=== PATIENT | female | born 2000 | race Caucasian/White ===

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

== ENCOUNTER 2022-03-12 19:05 | Emergency (ER) | payer BC ==
[~2022-03-12] VITALS: Ht 167.6 cm; Wt 68.1 kg
[2022-03-12 19:05] VITALS: BP 148/77
== END 2022-03-12 21:36 | disposition left against medical advice (07) ==
LOC: M ED 19:05
DX: Z53.21 Procedure and treatment not carried out due to patient leaving prior to being seen by health care provider (principal)

== ENCOUNTER 2022-11-25 10:39 | Emergency (ER) | payer BC ==
[~2022-11-25] VITALS: Ht 167.6 cm; Wt 56.3 kg
[2022-11-25 12:36] VITALS: BP 104/57; TEMP 97.8; O2SAT 99
[2022-11-25 12:50] LABS: BASO % 0.3 % (0.0-1.0); EOS # 0.1 10^3/uL (0.0-0.5); EOS % 0.7 % (0.0-3.0); HEMATOCRIT 38.8 % (36.0-47.0); HEMOGLOBIN 12.7 g/dl (12.0-15.5); LYMPH # 3.2 10^3/uL (1.5-5.0); LYMPH % 27.2 % (24.0-44.0); MEAN CORPUSCULAR HEMOGLOBIN 31.4 pg (27.0-33.0); MEAN CORPUSCULAR HGB CONC 32.7 g/dl (32.0-36.5); MONO # 0.9 10^3/uL (0.0-0.8); MONO % 7.9 % (2.0-8.0); NEUTROPHILS # 7.4 10^3/uL (1.5-8.5); NEUTROPHILS % 63.6 % (36.0-66.0); PLATELET COUNT, AUTOMATED 350 10^3/uL (150-450); RED BLOOD COUNT 4.04 10^6/uL (4.00-5.40); WHITE BLOOD COUNT 11.6 10^3/uL (4.0-10.0)
[2022-11-25] MEDS ORDERED: cefTRIAXone SOD 1 GM in D5W MINI-BAG PLUS 50 ML IV ONE (12:50)
[2022-11-25] MEDS ORDERED: NS 1,000 ML IV ONE (12:50)
[2022-11-25 13:14] LABS: BLOOD UREA NITROGEN 11 MG/DL (9-23); CALCIUM LEVEL 9.4 MG/DL (8.5-10.1); CARBON DIOXIDE LEVEL 28 MMOL/L (20-31); CHLORIDE LEVEL 106 MMOL/L (98-107); GLUCOSE, FASTING 79 MG/DL (60-100); POTASSIUM SERUM 4.2 MMOL/L (3.5-5.1); SODIUM LEVEL 139 MMOL/L (136-145)
[2022-11-25 13:15] LABS: HCG, SERUM QUALITATIVE NEGATIVE (NEGATIVE)
[2022-11-25] MEDS ORDERED: CEFD300C41 PO (13:19)
[2022-11-28] MEDS ORDERED: BACT800T5 PO (08:39)
== END 2022-11-25 13:46 | disposition home or self-care (01) ==
LOC: M ED 10:39
DX: N39.0 Urinary tract infection, site not specified (principal); N10 Acute pyelonephritis; F41.9 Anxiety disorder, unspecified; F32.A Depression, unspecified; Z88.1 Allergy status to other antibiotic agents; Z79.2 Long term (current) use of antibiotics
CPT/HCPCS: 76775; 80048; 81001; 84703; 85025; 87088; 87186; 96365; 99284; J0696

== ENCOUNTER 2023-09-17 22:24 | Emergency (ER) | payer BC ==
[~2023-09-17 22:24] MED LIST: BACT800T5 PO; CEFD1CAP9 PO
[2023-09-17 22:40] VITALS: TEMP 97.1
[2023-09-17 23:09] LABS: BASO % 0.3 % (0.0-1.0); EOS # 0.2 10^3/uL (0.0-0.5); EOS % 1.8 % (0.0-3.0); HEMATOCRIT 36.1 % (36.0-47.0); LYMPH # 3.7 10^3/uL (1.5-5.0); LYMPH % 39.5 % (24.0-44.0); MEAN CORPUSCULAR HEMOGLOBIN 31.9 pg (27.0-33.0); MEAN CORPUSCULAR HGB CONC 33.2 g/dl (32.0-36.5); MONO # 0.6 10^3/uL (0.0-0.8); MONO % 6.7 % (2.0-8.0); NEUTROPHILS # 4.9 10^3/uL (1.5-8.5); NEUTROPHILS % 51.4 % (36.0-66.0); PLATELET COUNT, AUTOMATED 302 10^3/uL (150-450); RED BLOOD COUNT 3.76 10^6/uL (4.00-5.40); WHITE BLOOD COUNT 9.4 10^3/uL (4.0-10.0)
[2023-09-18 00:15] LABS: ETHYL ALCOHOL (ETHANOL) < 0.003 % (0.000-0.010)
[2023-09-18 00:17] LABS: BLOOD UREA NITROGEN 13 MG/DL (9-23); CALCIUM LEVEL 7.9 MG/DL (8.5-10.1); CARBON DIOXIDE LEVEL 24 MMOL/L (20-31); CHLORIDE LEVEL 110 MMOL/L (98-107); CREATININE FOR GFR 0.84 MG/DL (0.55-1.30); GLOMERULAR FILTRATION RATE > 60.0 (>60); GLUCOSE, FASTING 82 MG/DL (60-100); POTASSIUM SERUM 3.9 MMOL/L (3.5-5.1); SODIUM LEVEL 140 MMOL/L (136-145)
[2023-09-18 00:19] LABS: THYROID STIMULATING HORMONE 4.903 uIU/ML (0.55-4.78)
[2023-09-18 00:33] LABS: HCG, SERUM QUALITATIVE NEGATIVE (NEGATIVE)
[2023-09-18 00:38] LABS: AMPHETAMINES LEVEL URINE NEGATIVE (NEGATIVE); BARBITURATES URINE NEGATIVE (NEGATIVE); BENZODIAZEPINES URINE NEGATIVE (NEGATIVE); COCAINE METABOLITE URINE NEGATIVE (NEGATIVE); METHADONE URINE NEGATIVE (NEGATIVE); OPIATES URINE NEGATIVE (NEGATIVE); PHENCYCLIDINE URINE NEGATIVE (NEGATIVE)
[2023-09-18 00:39] LABS: CANNABINOIDS URINE POSITIVE (NEGATIVE)
[2023-09-18 00:40] VITALS: BP 123/73
[2023-09-18 01:24] VITALS: O2SAT 98
[2023-09-18] MEDS: ACETAMINOPHEN TAB 650MG DOSE (2X325MG) PO ONE (01:56)
== END 2023-09-18 03:47 | disposition home or self-care (01) ==
LOC: M ED 22:24 → EDBD 22:24 → M ED 09-18 03:47
DX: R55 Syncope and collapse (principal); F12.10 Cannabis abuse, uncomplicated; Z88.1 Allergy status to other antibiotic agents; Z79.2 Long term (current) use of antibiotics